=== PATIENT | female | born 1990 | race Caucasian/White ===

== ENCOUNTER 2025-04-13 16:49 | Emergency (ER) | payer BC ==
[2025-04-13] MEDS ORDERED: Aspirin Chewable 81 MG TAB ONE (17:06)
[2025-04-13] MEDS ORDERED: Ondansetron PF 4 MG/2 ML Vial ONE (17:06)
[2025-04-13 17:44] LABS: Glucose, Urine (Dipstick) Negative (Negative); Leukocyte Negative (Negative); Protein, Urine (Dipstick) Negative (Neg-Trace); Specific Gravity, Urine 1.015 (1.005-1.030)
[2025-04-13 17:50] LABS: ALT (SGPT) 36 U/L (Less than 34); AST (SGOT) 25 U/L (11-34); Albumin 4.1 g/dL (3.1-4.5); Alkaline Phosphatase 83 U/L (40-110); Anion Gap 14 mmol/L (10-20); BUN (Urea Nitrogen) 9 mg/dL (7.0-18.7); Bilirubin, Total 0.3 mg/dL (0.3-1.2); Calc. Creatinine Clearance 0 mL/min (70-130); Calcium 9.1 mg/dL (7.8-10.44); Carbon Dioxide 24 mmol/L (22-29); Chloride 108 mmol/L (98-107); Globulin 2.8 g/dL (2.4-3.5); Glucose 108 mg/dL (70-105); Potassium 4.2 mmol/L (3.5-5.1); Sodium 142 mmol/L (136-145)
[2025-04-13 17:52] LABS: Troponin I Less than 0.010 ng/mL (< 0.028)
[2025-04-13 17:53] LABS: Cocaine Metabolite Screen Negative (Negative); THC/Cannabinoid Screen Negative (Negative); Tricyclic Screen Negative (Negative)
[2025-04-13 18:06] LABS: #Basophils 0.1 thou/uL (0.0-0.2); #Eosinophils 0.4 thou/uL (0.0-0.7); #Lymphocytes 2.3 thou/uL (1.20-3.40); #Monocytes 0.6 thou/uL (0.11-0.59); #Neutrophils 4.6 thou/uL (1.40-6.50); %Basophils 0.7 % (0.0-1.0); %Eosinophils 4.9 % (0.0-10.0); %Lymphocytes 28.6 % (21.0-51.0); %Monocytes 7.3 % (0.0-10.0); %Neutrophils 58.6 % (42.0-75.0); Hematocrit 38.7 % (36.0-47.0); Hemoglobin 14.0 g/dL (12.0-16.0); Mean Corpuscular Hemoglobin 30.8 pg (27.0-31.0); Mean Corpuscular Volume 85.2 fl (78.0-98.0); Platelet Count 259 10x3/uL (130-400); Red Blood Cell (RBC) Count 4.54 mill/uL (4.20-5.40); White Blood Cell (WBC) Count 7.9 10x3/uL (4.8-10.8)
[2025-04-13 18:12] LABS: Pregnancy Test - Urine (BHCG) Negative (Negative); Pregu Control Bar Appear? YES (CONTROL BAR)
[2025-04-13 18:13] LABS: Pregu Control Background? CLEAR/WHITE (CLR/WHITE)
[2025-04-13 18:15] LABS: CAUTI Indications for Culture Pelvic or flank pain; RBC/HPF 0-3 HPF (0-3); WBC/HPF 0-3 HPF (0-3)
[2025-04-13 18:16] LABS: Bacteria/HPF 1+ HPF (None Seen); Mucous/LPF 1+ LPF (<2+); Urine Culture Reflex No No
== END 2025-04-13 18:43 | disposition home or self-care (01) ==
LOC: NAV ERS 16:49
DX: R07.9 Chest pain, unspecified (principal); R29.700 NIHSS score 0
CPT/HCPCS: 36415; 71045; 80053; 80306; 81001; 81025; 83880; 84484; 85025; 85379; 93005; 96374; J2405